=== PATIENT | male | born 1960 | race Caucasian/White ===

== ENCOUNTER → 2020-06-26 | Outpatient (CLI) | payer OTHER ==
[~2020-06-26] MED LIST: NAPROSYN500 MG PO; NORCO 5-325 TA1 EACH PO; PREDNISONE 50 M50 MG PO; Voltaren Gel 1 % TOP
== END ==
LOC: EXRD 13:43
DX: L40.50 Arthropathic psoriasis, unspecified (principal); M85.842 Other specified disorders of bone density and structure, left hand; M85.841 Other specified disorders of bone density and structure, right hand; M19.042 Primary osteoarthritis, left hand; M19.041 Primary osteoarthritis, right hand
CPT/HCPCS: 73130

== ENCOUNTER → 2020-07-20 | Outpatient (CLI) | payer OTHER | LOC: EXRD 08:43 | DX: R76.12 Nonspecific reaction to cell mediated immunity measurement of gamma interferon antigen response without active tuberculosis (principal) | CPT/HCPCS: 71046 ==

== ENCOUNTER 2021-03-18 09:49 | Inpatient (IN) | payer OTHER ==
[~2021-03-18] VITALS: Ht 182.9 cm; Wt 117.9 kg
[2021-03-18 11:00] LABS: HEMOGLOBIN 14.7 gm/dl (14.0-17.5); RED BLOOD COUNT 4.49 M/UL (4.20-5.50)
[2021-03-18] MEDS ORDERED: NORVASC10 MG PO (16:13)
[2021-03-18] MEDS ORDERED: CATAPRES 0.1MG0.1 MG PO (16:14)
[2021-03-18] MEDS ORDERED: TOPROL XL50 MG PO (16:16)
[2021-03-18] MEDS ORDERED: PROTONIX40 MG PO (16:17)
[2021-03-19 07:44] LABS: BUN/CREATININE RATIO 28 (0-10)
[2021-03-19 09:01] LABS: ACINETOBACTER BAUMANNII Not Detected (Negative); CANDIDA ALBICANS Not Detected (Negative); CANDIDA KRUSEI Not Detected (Negative); CANDIDA TROPICALIS Not Detected (Negative); ENTEROCOCCUS Not Detected (Negative); ESCHERICHIA COLI Not Detected (Negative); HAEMOPHILUS INFLUENZAE Not Detected (Negative); KLEBSIELLA OXYTOCA Not Detected (Negative); KLEBSIELLA PNEUMONIAE Not Detected (Negative); KPC-CARBAPENEM-RESISTANCE GENE Not Detected (Negative); PROTEUS Not Detected (Negative); PSEUDOMONAS AERUGINOSA Not Detected (Negative); SERRATIA MARCESANS Not Detected (Negative); STAPHYLOCOCCUS AUREUS Not Detected (Negative); STREP AGALACTIAE (GROUP B) Not Detected (Negative); STREP PYOGENES (GROUP A) Not Detected (Negative); STREPTOCOCCUS Not Detected (Negative); mecA (METHICILLIN RESIST GENE Not Detected (Negative); vanA/B (VANCOMYCIN RESIST GENE Not Detected (Negative)
[2021-03-19 10:17] LABS: STAPHYLOCOCCUS DETECTED (Negative)
[2021-03-19 10:35] LABS: HEMOGLOBIN 13.9 gm/dl (14.0-17.5); RED BLOOD COUNT 4.48 M/UL (4.20-5.50); WHITE BLOOD COUNT 16.9 K/UL (4.5-11.0)
[2021-03-19] MEDS ORDERED: METHADONE HCL T10 MG PO (12:29)
[2021-03-20 02:55] LABS: HEMOGLOBIN 13.5 gm/dl (14.0-17.5); RED BLOOD COUNT 4.18 M/UL (4.20-5.50); WHITE BLOOD COUNT 17.7 K/UL (4.5-11.0)
[2021-03-20 03:19] LABS: BUN/CREATININE RATIO 29 (0-10)
--- NOTE | 2021-03-20 12:13 | NUR ---
WALKED PATIENT IN ROOM, O2 SAT ON ROOM AIR DROPPED TO 87%, CAME BACK UP ONCE RESTING TO 90%
[2021-03-20] MEDS ORDERED: TAMIFLU 75 MG C75 MG PO (13:13)
[2021-03-20] MEDS ORDERED: CEFUROXIME500 MG PO (13:13)
== END 2021-03-20 15:30 | disposition home or self-care (01) | DRG 871 ==
LOC: ER1 09:49 → MED SURG 4 12:24 → CDU 12:24 → MED SURG 4 22:32
PROVIDERS: Emergency Medicine; Internal Medicine; Physician Assistant; ADMIT Internal Medicine
DX: A41.89 Other specified sepsis (principal); J10.08 Influenza due to other identified influenza virus with other specified pneumonia; J96.01 Acute respiratory failure with hypoxia; N17.9 Acute kidney failure, unspecified; Z20.822 Contact with and (suspected) exposure to COVID-19; I12.9 Hypertensive chronic kidney disease with stage 1 through stage 4 chronic kidney disease, or unspecified chronic kidney disease; E66.01 Morbid (severe) obesity due to excess calories; G89.4 Chronic pain syndrome; E87.6 Hypokalemia; D69.6 Thrombocytopenia, unspecified; J44.9 Chronic obstructive pulmonary disease, unspecified; R65.20 Severe sepsis without septic shock; E78.5 Hyperlipidemia, unspecified; N18.30 Chronic kidney disease, stage 3 unspecified; M10.9 Gout, unspecified; F17.210 Nicotine dependence, cigarettes, uncomplicated; F41.9 Anxiety disorder, unspecified; Z88.0 Allergy status to penicillin; Z82.49 Family history of ischemic heart disease and other diseases of the circulatory system; Z68.25 Body mass index [BMI] 25.0-25.9, adult
CPT/HCPCS: 36415; 36600; 71045; 80048; 80053; 82550; 82553; 82803; 83605; 83690; 83735; 83880; 84100; 84484; 85025; 85610; 85730; 87040; 87077; 87150; 87186; 94664; 99285; J1956; J2930; J7030; U0002

== ENCOUNTER 2021-03-22 13:17 | Inpatient (IN) | payer OTHER ==
[~2021-03-22] VITALS: Ht 182.9 cm; Wt 117.5 kg
[~2021-03-22 13:17] MED LIST changes: +CATAPRES 0.1MG0.1 MG PO; +CEFUROXIME500 MG PO; +METHADONE HCL T10 MG PO; +NORVASC10 MG PO; +PROTONIX40 MG PO; +TAMIFLU 75 MG C75 MG PO; +TOPROL XL50 MG PO
[2021-03-22 14:27] LABS: HEMOGLOBIN 13.7 gm/dl (14.0-17.5); RED BLOOD COUNT 4.21 M/UL (4.20-5.50); WHITE BLOOD COUNT 17.6 K/UL (4.5-11.0)
[2021-03-22 14:53] LABS: BUN/CREATININE RATIO 21 (0-10)
[2021-03-22] MEDS ORDERED: ZYLOPRIM 100 M100 MG PO (16:11)
[2021-03-22] MEDS ORDERED: COZAAR 50MG TAB50 MG PO (16:15)
[2021-03-22] MEDS ORDERED: ALPRAZOLAM0.5 MG PO (16:19)
[2021-03-23 03:14] LABS: HEMOGLOBIN 12.5 gm/dl (14.0-17.5); RED BLOOD COUNT 3.92 M/UL (4.20-5.50)
[2021-03-23 03:21] LABS: WHITE BLOOD COUNT 12.5 K/UL (4.5-11.0)
[2021-03-23 03:26] LABS: BUN/CREATININE RATIO 20 (0-10)
[2021-03-24 06:17] LABS: RED BLOOD COUNT 3.79 M/UL (4.20-5.50); WHITE BLOOD COUNT 10.4 K/UL (4.5-11.0)
[2021-03-24 07:53] LABS: BUN/CREATININE RATIO 14 (0-10)
[2021-03-24 09:42] LABS: HEMOGLOBIN 12.3 gm/dl (14.0-17.5); RED BLOOD COUNT 3.89 M/UL (4.20-5.50); WHITE BLOOD COUNT 8.9 K/UL (4.5-11.0)
[2021-03-24 10:05] LABS: BUN/CREATININE RATIO 14 (0-10)
[2021-03-25 08:34] LABS: HEMOGLOBIN 12.1 gm/dl (14.0-17.5); RED BLOOD COUNT 3.88 M/UL (4.20-5.50); WHITE BLOOD COUNT 9.9 K/UL (4.5-11.0)
[2021-03-25 09:03] LABS: BUN/CREATININE RATIO 12 (0-10)
[2021-03-26 05:24] LABS: HEMOGLOBIN 12.4 gm/dl (14.0-17.5); RED BLOOD COUNT 3.87 M/UL (4.20-5.50); WHITE BLOOD COUNT 11.7 K/UL (4.5-11.0)
[2021-03-26 06:03] LABS: BUN/CREATININE RATIO 14 (0-10)
[2021-03-27 06:04] LABS: HEMOGLOBIN 12.1 gm/dl (14.0-17.5); RED BLOOD COUNT 3.83 M/UL (4.20-5.50); WHITE BLOOD COUNT 11.4 K/UL (4.5-11.0)
[2021-03-27 06:25] LABS: BUN/CREATININE RATIO 14 (0-10)
[2021-03-28 06:55] LABS: HEMOGLOBIN 11.8 gm/dl (14.0-17.5); RED BLOOD COUNT 3.82 M/UL (4.20-5.50); WHITE BLOOD COUNT 9.8 K/UL (4.5-11.0)
[2021-03-28 08:38] LABS: BUN/CREATININE RATIO 14 (0-10)
[2021-03-29 07:48] LABS: BUN/CREATININE RATIO 12 (0-10)
[2021-03-30] MEDS ORDERED: NORVASC10 MG PO (09:10)
[2021-03-30] MEDS ORDERED: LEVOFLOXACIN750 MG PO (09:12)
== END 2021-03-30 10:59 | disposition home or self-care (01) | DRG 193 ==
LOC: ER1 13:17 → CDU 15:50 → MED SURG 4 15:50
PROVIDERS: Emergency Medicine; Internal Medicine; Physician Assistant; ADMIT Internal Medicine
DX: J15.9 Unspecified bacterial pneumonia (principal); J96.21 Acute and chronic respiratory failure with hypoxia; J10.08 Influenza due to other identified influenza virus with other specified pneumonia; I10 Essential (primary) hypertension; E78.5 Hyperlipidemia, unspecified; F17.200 Nicotine dependence, unspecified, uncomplicated; K21.9 Gastro-esophageal reflux disease without esophagitis; M10.9 Gout, unspecified; E66.9 Obesity, unspecified; E87.6 Hypokalemia; G47.33 Obstructive sleep apnea (adult) (pediatric); G89.4 Chronic pain syndrome; I95.9 Hypotension, unspecified; Z20.822 Contact with and (suspected) exposure to COVID-19; F41.9 Anxiety disorder, unspecified; Z88.0 Allergy status to penicillin; Z79.899 Other long term (current) drug therapy; Z82.49 Family history of ischemic heart disease and other diseases of the circulatory system
CPT/HCPCS: 36415; 36600; 71045; 71046; 80048; 80053; 80202; 82550; 82553; 82803; 83605; 83690; 83735; 83880; 84100; 84132; 84484; 85025; 85027; 85610; 85730; 87040; 87070; 87081; 87205; 87880; 93005; 94640; 94664; 94760; 99285; J0692; J1650; J3370; J7070; U0002